=== PATIENT | female | born 1940 | race Caucasian/White ===

== ENCOUNTER → 2018-09-30 | Outpatient (CLI) | payer MEDICARE, BC ==
--- NOTE | 2018-09-30 14:26 | CT ---
EXAM DESCRIPTION: Abdomen/Pelvis w/Contrast: Computed Tomography. CLINICAL HISTORY: 78 years Female LOWER ABDOMIN PAIN COMPARISON: CT scan of abdomen and pelvis 11/12/2011. TECHNIQUE: Spiral-axial scans at 5 x 5 mm intervals through the abdomen and pelvis, after nonionic IV contrast without oral contrast. Coronal and sagittal 2.0 mm reconstructions. Delayed scans, liver through the pelvis. Axial-spiral 5mm. No adverse reactions. Total Exam DLP: 449.71 mGy-cm. This exam was performed according to our departmental dose-optimization program which includes automated exposure control, adjustment of the mA and/or kV according to patient size and/or use of iterative reconstruction technique; to reduce radiation dose to as low as reasonably achievable (ALARA). FINDINGS: Lung bases and pleura: Minimal scarring in the inferior left lower lobe and inferior lingula. No pleural effusion. Liver, Stomach, Spleen, Adrenal Glands: Minimally decreased density in the liver. No focal lesions. Long axis of the right lobe is 14.5 cm. Stomach is unremarkable. Other solid organs are negative. Pancreas, Gallbladder, Ducts: Gallbladder slightly contracted and difficult to visualize. Questionable wall thickening. Common bile duct nondilated. Partial visualization of the pancreas with no definite abnormalities. Kidneys and Ureters: Bilateral dual renal pelves for upper and lower collecting systems. Proximal ureters are single. Proximal ureter ectatic throughout most of its length but no obstruction. Otherwise unremarkable. Mesentery: Difficult to evaluate due to small body habitus and dilated intestine. Aorta: Moderate atherosclerotic calcification with narrowing of the distal lumen and calcification in the bilateral common iliac arteries. Small Bowel: Minimal distention by bowel gas with scattered air-fluid levels. No significantly distended segments. No transition point. Terminal Ileum/Cecum: No distention. Gas and fecal material. Normal caliber of the appendix. Surrounding fatty tissue not well seen. Colon: scattered fecal material and gas throughout the entire length. Mild distention by gas. Mostly fecal material in the rectum. No significant air-fluid levels. Pelvic Organs: Urinary bladder not well distended. Vaginal cuff unremarkable. Minimal free fluid in the pelvis with no definite mass.. Spine and Bony Pelvis: Thoracolumbar levoscoliosis with minimal spondylosis. Grade 1 anterolisthesis L3-4 and L4-5 Abdominal Wall/Back Soft Tissues: Minimal diastases at the umbilicus but no bowel herniation. IMPRESSION: 1. Minimal steatosis of the liver with smooth capsule not enlarged. No ascites. No duct dilation. Gallbladder is elongated and questionable wall thickening. Pancreas difficult to visualize. No definite abnormalities. Ducts not distended. Consider right upper quadrant abdominal ultrasound. 2. Bilateral duplicated renal pelves, with ectasia of the right ureter on its entire length but no obstruction bilaterally. No hydronephrosis bilaterally. 3. Moderate atherosclerotic changes in the distal aorta with narrowing of the lumen but no definite stenosis and no aneurysm. 4. Distended segments of the small bowel with no transition points. Probable bowel stasis. Enteritis less likely. 5. Minimal fluid in the cul-de-sac with uterus and ovaries not seen. No abnormal enhancement. Consider follow-up pelvic ultrasound. Electronically signed by: Jackson Mason MD 09/30/2018 2:25 PM [facility]
== END ==
LOC: CT 10:00
PROVIDERS: ATTEND General Practice
DX: R10.30 Lower abdominal pain, unspecified (principal); K76.0 Fatty (change of) liver, not elsewhere classified; I70.0 Atherosclerosis of aorta